=== PATIENT | female | born 1980 | race Two or more races ===

== ENCOUNTER 2021-11-24 13:00 | Emergency (ER) | payer SELFPAY ==
[~2021-11-24] VITALS: Ht 157.5 cm; Wt 104.3 kg
[2021-11-24] MEDS ORDERED: SWABABLE VALVE TRANSFER SET EA MC ONE (13:25)
[2021-11-24] MEDS ORDERED: IOHEXOL 300MG/ML 100 ML INFUS..BTL ONE (13:25)
[2021-11-24] MEDS ORDERED: IV NORMAL SALINE 250 ML IV ONE (13:27)
[2021-11-24] MEDS ORDERED: HYDROMORPHONE 1 MG/1 ML DISP.SYRIN IV ONE (13:30)
[2021-11-24] MEDS ORDERED: ONDANSETRON 4 MG/2 ML VIAL IV ONE (13:30)
[2021-11-24] MEDS ORDERED: IV NORMAL SALINE 1000 ML BAG IV ONE (13:30)
[2021-11-24] MEDS ORDERED: ONDANSETRON 4 MG/2 ML VIAL ONE (13:34)
[2021-11-24 13:35] LABS: HEMATOCRIT 38.8 % (31.2-41.9); MEAN CORPUSCULAR VOLUME 82.9 fL (75.5-95.3); PLATELET COUNT (AUTO) 333 K/uL (179-408)
[2021-11-24] MEDS ORDERED: HYDROMORPHONE 1 MG/1 ML DISP.SYRIN ONE (13:35)
[2021-11-24 13:45] LABS: CREATININE 0.6 mg/dL (0.6-1.3); POTASSIUM 4.3 mmol/L (3.5-5.1)
[2021-11-24 13:51] LABS: BILIRUBIN,DIRECT 0.1 mg/dL (0.0-0.2); BILIRUBIN,TOTAL 0.4 mg/dL (0.2-1.0); TOTAL PROTEIN, SERUM 8.4 g/dL (6.4-8.2)
--- NOTE | 2021-11-24 15:05 | NUR ---
Patient back from CT scan.
[2021-11-24 15:40] LABS: *BILIRUBIN,URIN NEGATIVE (NEGATIVE); *CLARITY,URINE CLEAR (CLEAR); *COLOR,URINE YELLOW (YELLOW); *KETONES,URINE NEGATIVE (NEGATIVE); *UROBILINOGEN,URINE 0.2 E.U./dl (NORMAL); LEUKOCYTE ESTERASE ,URINE NEGATIVE (NEGATIVE); NITRITE, URINE NEGATIVE (NEGATIVE); PH,URINE 5.5 (5.0-8.0); UGLUCOSE NEGATIVE (NEGATIVE)
[2021-11-24 15:41] LABS: *BLOOD, URINE TRACE (NEGATIVE)
--- NOTE | 2021-11-24 16:44 | NUR ---
Patient discharged to home in stable condition. Written and verbal after care instructions given. Patient verbalizes understanding of instructions. Stressed follow up or return to ER for worsening s/s.
[2021-11-24 16:47] VITALS: BP 155/56
[2021-11-24 18:03] LABS: BACTERIA,URINE NONE SEEN /HPF (NONE SEEN); SQUAMOUS EPITHELIAL CELL,UR FEW /HPF (NONE SEEN); URINE AMORPHOUS URATE MODERATE /HPF; WBC,URINE 0-3 /HPF (0-3)
== END 2021-11-24 16:48 | disposition home or self-care (01) ==
LOC: ER 13:00
DX: K91.841 Postprocedural hemorrhage of a digestive system organ or structure following other procedure (principal); K76.0 Fatty (change of) liver, not elsewhere classified
CPT/HCPCS: 99285; 74177; 96374; 96361; 96375; 80076; 80048; 81001; 82962; 83690; 85025; 84702; 36415; J2405; Q9967; J1170; J7040